=== PATIENT | male | born 1990 | race Caucasian/White ===

== ENCOUNTER 2020-01-23 08:21 | Outpatient (CLI) | payer OTHER, SELFPAY ==
--- NOTE | 2020-01-26 00:45 | P.PCNPFT_ITS ---
PFT Interpretation PFT Interpretation: DOS: 01/23/2020 REQUESTING: Dr Lee REASON FOR TESTING: Shortness of breath PULMONARY FUNCTION TESTS Results are reproducible. Specialty Plant Supervisor noted that the patient performed all testing to the best of his ability. Spirometry: Extremely severe decrease in FEV1, 33% predicted, 1.32 liters. FVC is mildly reduced, 72%. FEV1% is reduced consistent with an obstructive ventilatory defect. There is an 18% increase and greater than 200 ml increase in FEV1 after bronchodilator. Lung volumes: Total lung capacity is 110% predicted, normal. RV is severely increased 219% consistent with severe air trapping. Airway resistance is 331%, increased. Diffusion: DLCO mildly reduced 68%. Flow volume loop: Scooping of the expiratory limb. IMPRESSION: Severe obstructive ventilatory defect with severe air trapping, increased airway resistance and mild decrease in diffusion. Excellent response to bronchodilator. In the proper clinical setting, this pattern may be consistent with asthma. Niox is elevated at 42 ppb consistent with increased airway inflammation. Janneth Lee MD
== END 2020-01-23 08:22 | disposition home or self-care (01) ==
PROVIDERS: Visit Provider Internal Medicine Critical Care Medicine
DX: J45.909 Unspecified asthma, uncomplicated (principal); R94.2 Abnormal results of pulmonary function studies
CPT/HCPCS: 94060; 94726; 94729; 95012

== ENCOUNTER 2020-03-03 16:39 | Outpatient (CLI) | payer OTHER, SELFPAY ==
--- NOTE | ~2020-03-03 | XR_ITS ---
EXAMINATION: XR chest 2V DATE: 03/03/2020 16:58 INDICATION: Shortness of breath, history of asthma TECHNIQUE: PA and lateral views of the chest are obtained. COMPARISON: None available FINDINGS: There appear to be tiny bilateral reticulonodular opacities There is no pleural effusion or pneumothorax. The cardiomediastinal silhouette is normal. The visualized bones and soft tissues are unremarkable. A left-sided horizontal fissure is noted. IMPRESSION: 1. Apparent bilateral reticulonodular opacities, likely infectious or inflammatory. Reviewed, dictated and finalized at location A. IMPRESSION: 1. Apparent bilateral reticulonodular opacities, likely infectious or inflammat ory.
== END 2020-03-03 16:40 | disposition home or self-care (01) ==
PROVIDERS: Visit Provider Internal Medicine Critical Care Medicine
DX: J45.909 Unspecified asthma, uncomplicated (principal); R91.8 Other nonspecific abnormal finding of lung field
CPT/HCPCS: 71046

== ENCOUNTER 2020-06-30 21:30 | Emergency (ER) | payer OTHER, SELFPAY ==
--- NOTE | ~2020-06-30 | CT_ITS ---
EXAMINATION: CT BRAIN W/O DATE: 06/30/2020 22:13 INDICATION: Loss of consciousness after smoking marijuana. TECHNIQUE: Computed tomography (CT) of the head was performed without intravenous contrast. The dose- length product was 605.33 mGy-cm. The mA was adjusted according to patient size. Iterative reconstruc tion technique was employed. COMPARISON: No prior studies for comparison. FINDINGS: Normal brain parenchymal volume for age. Normal martinez-white differentiation. No acute intrac ranial hemorrhage, infarction, mass or mass effect. No ventriculomegaly or midline shift. Midline sagittal images demonstrate a normal corpus callosum, c raniovertebral junction and sella turcica. Basilar cisterns are patent. There is pansinusitis. Mastoids are pneumatized. IMPRESSION: 1. No acute intracranial abnormality. 2: Pansinusitis. Reviewed, dictated and finalized at location A.
[2020-06-30 21:32] VITALS: BP 124/69; PULSE 59; RESP 16; TEMP 36.2; O2SAT 98
--- NOTE | 2020-06-30 23:18 | ED.HEATRA ---
HPI - Head Injury General Chief complaint: Head Injury Stated complaint: fall, hit head, LOC Time Seen by Provider: 06/30/20 21:38 Source: patient Mode of arrival: ambulatory Limitations: no limitations History of Present Illness HPI Narrative: 29-year-old with a history of asthma here with complaints of fall patient states that he was on the kitchen table accidentally fell and hit his head. Patient states that he hit his head very hard on the floor with brief loss of consciousness. Patient states that he feels extremely tired. Denies any blurred vision, nausea or vomiting. Complaint: head injury Onset (ago): hour(s) (1) Place: home Loss of Consciousness: yes Location of injury: frontal and occipital Severity: moderate Severity scale (1-10): 6 Quality: dull Other Injuries: none Associated symptoms: denies other symptoms Related Data Home Medications Medication Instructions Recorded Confirmed albuterol sulfate 90 mcg/actuation 1 inhalation INHALATION Q6H gm 12/24/19 aerosol inhaler Allergies Allergy/AdvReac Type Severity Reaction Status Date / Time No Known Allergies Allergy Unverified 06/30/20 22:42 Review of Systems Review of Systems: All systems reviewed & are unremarkable except as noted in HPI and below Constitutional: Constitutional: Reports no additional constitutional complaints Eyes: Eyes: Reports no additional eye complaints ENT: Reports system reviewed and no additional complaints, except as documented Cardiovascular: Cardiovascular: Reports no additional cardiovascular complaints Respiratory: Respiratory: Reports no additional respiratory complaints Gastrointestinal: Gastrointestinal: Reports no additional gastrointestinal complaints Musculoskeletal: Musculoskeletal: Reports no additional musculoskeletal complaints Neurologic: Reports as per HPI PMFSH Past Medical History Medical History Asthma Social History Social History Smoking status: Never smoker Exam Narrative: Exam Narrative: GENERAL: Well-appearing, well-nourished, and in no acute distress. HEAD: Normocephalic, atraumatic. EYES: PERRLA and EOMI. ENT: Nares clear, no rhinorrhea or epistaxis. Mucous membranes moist. NECK: Supple. CHEST: Clear to auscultation. No respiratory distress. HEART: Regular rate and rhythm. No murmur heard. Normal peripheral pulses.. EXTREMITIES: Normal range of motion. No edema. SKIN: Warm, dry, no rash. NEURO: No focal deficits. Alert and oriented x3. PSYCH: Normal mood and affect. Course Course Emergency Course: Inform patient about his CT findings. He does feel comfortable going home advised him to take Tylenol for pain as needed. Return to the ER for change in mental status. Vital Signs Vital signs: Vital Signs Temperature 36.2 C L 06/30/20 21:32 Pulse Rate 59 L 06/30/20 21:32 Respiratory Rate 16 06/30/20 21:32 Blood Pressure 124/69 06/30/20 21:32 Pulse Oximetry 98 06/30/20 21:32 Temperature 36.2 C L 06/30/20 21:32 Pulse Rate 59 L 06/30/20 21:32 Respiratory Rate 16 06/30/20 21:32 Blood Pressure 124/69 06/30/20 21:32 Pulse Oximetry 98 06/30/20 21:32 MDM - Head Injury Imaging Data Radiologist's impression: ITS Impressions Head CT 06/30/20 22:18 IMPRESSION: 1. No acute intracranial abnormality. 2: Pansinusitis. Discharge Plan Discharge Clinical Impression: Closed head injury Qualifiers: Encounter type: initial encounter Qualified Code(s): S09.90XA - Unspecified injury of head, initial encounter Patient Disposition: Home, Self-Care Condition: Stable Instructions: Antibiotic Form, Head Injury (ED) Prescriptions: No Action albuterol sulfate 90 mcg/actuation HFA aerosol inhaler 1 inhalation INHALATION Q6H PRN (Reason: Shortness Of Breath Or Wheezing) RF: 0 zafirlukast 10 mg tablet 20
== END 2020-06-30 23:25 | disposition home or self-care (01) ==
PROVIDERS: Emergency Provider Family Medicine
DX: S09.90XA Unspecified injury of head, initial encounter (principal); J32.4 Chronic pansinusitis; J45.909 Unspecified asthma, uncomplicated; W08.XXXA Fall from other furniture, initial encounter
CPT/HCPCS: 70450; 99284

== ENCOUNTER 2020-07-16 09:41 | Outpatient (CLI) | payer OTHER, SELFPAY | END 2020-07-16 09:42 | disposition home or self-care (01) | PROVIDERS: Visit Provider Nurse Practitioner Family | DX: R09.3 Abnormal sputum (principal) | CPT/HCPCS: 87015; 87070; 87116; 87205; 87206 ==

== ENCOUNTER 2020-07-27 17:07 | Outpatient (CLI) | payer OTHER, SELFPAY ==
--- NOTE | ~2020-07-27 | CT_ITS ---
EXAMINATION: CT chest wo con DATE: 07/27/2020 17:25 INDICATION: R91.8 - Other nonspecific abnormal finding of lung field TECHNIQUE: Computed tomography (CT) of the chest was performed without intravenous contrast. Addition al 3D reconstructions utilizing coronal maximum intensity projection (MIP) were performed. Automated exposure control and iterative reconstruction technique were employed. The dose-length product was 10 5.09 mGy-cm. COMPARISON: None FINDINGS: Lungs are clear with no pneumonia, suspicious pulmonary nodules, pulmonary edema or pleural effusion. Heart size is normal. No pericardial effusion. No pathologically enlarged thoracic lymphadenopathy. Visualized upper abdomen and bones are unremarkable. IMPRESSION: 1. Normal chest CT. Reviewed, dictated and finalized at location H. [employer] SALES MANAGER IMPRESSION: 1. Normal chest CT.
== END 2020-07-27 17:08 | disposition home or self-care (01) ==
PROVIDERS: Visit Provider Nurse Practitioner Family
DX: R91.8 Other nonspecific abnormal finding of lung field (principal)
CPT/HCPCS: 71250